=== PATIENT | female | born 1945 | race Caucasian/White ===

== ENCOUNTER 2016-06-20 09:07 | Observation (INO) | payer MEDICARE ==
[~2016-06-20] VITALS: Ht 154.9 cm; Wt 55.4 kg
[~2016-06-20 09:07] MED LIST: ASPIRIN 81M81 MG/TA2 PO; CEPHALEXIN500 M1 PO; CORDARONE200 MG/TAB PO; Cordarone PO; GLUCOTROL XL10 MG PO; GLUCOTROL10 MG PO; KLOR-CON 1010 MEQ PO; LASIX 20MG TABL20 MG PO; LOPRESSOR 225 MG/TAB PO; MIRALAX119G PO; NITROSTAT0.4 MG/TAB SL; NORCO 325 MG-51 TAB PO; PLAVIX 75MG TAB75 MG PO; PRINIVIL10 MG PO; TENORMIN 2525 MG/TAB PO; VASOTEC 2.2.5 MG/TAB PO; ZANTAC 150MG T150 MG PO; ZOCOR 20MG20 MG PO
[2016-06-20 12:01] LABS: BASO % 0.2 % (0.0-2.0); EOS # 0.2 (0.0-0.7); EOS % 1.2 % (0-4.0); GRAN # 9.9 (1.4-6.5); GRAN % 81.2 % (42.2-75.2); HEMOGLOBIN 12.3 g/dl (12.5-16.0); LYMPH # 1.1 (1.2-3.4); LYMPH % 8.9 % (20.0-51.0); MEAN CELL VOLUME 94 fl (80.0-100.0); MEAN CORPUSCULAR HEMOGLOBIN 32 pg (27.0-31.0); MEAN CORPUSCULAR HGB CONC 34 g/dl (33.0-37.0); MEAN PLATELET VOLUME 9.5 fl (7.4-10.4); MONO % 8.3 % (1.7-9.3); PLATELET COUNT 171 K/mm3 (130-400); RED BLOOD COUNT 3.83 M/mm3 (4.10-5.30); REDCELL DISTRIBUTION WIDTH-CV 13.4 % (11.5-14.5); WHITE BLOOD COUNT 12.2 K/mm3 (4.8-10.8)
[2016-06-20 12:11] LABS: HEMATOCRIT 36.1 % (37.0-47.0)
[2016-06-20 12:13] LABS: INR 1.1 (0.8-3.0); PROTHROMBIN TIME 11.7 SECONDS (9.7-12.8)
[2016-06-20 12:16] LABS: PARTIAL THROMBOPLASTIN TIME 35.3 SECONDS (26.0-37.0)
[2016-06-20 12:19] VITALS: BP 109/41; PULSE 77; TEMP 98.1
[2016-06-20 12:21] VITALS: BP 109/41
[2016-06-20 12:30] LABS: ADJUSTED CALCIUM 9.2 mg/dL (8.4-10.2); ALANINE AMINOTRANSFERASE 53 U/L (9-52); ALBUMIN 3.6 gm/dL (3.5-5.0); ALKALINE PHOSPHATASE 98 U/L (50-136); ANION GAP 8 mmol/L (7-16); BILIRUBIN,TOTAL 0.9 mg/dL (0.0-1.0); BLOOD UREA NITROGEN 9 mg/dL (7-17); CALCIUM 8.9 mg/dL (8.4-10.2); CARBON DIOXIDE 28 mmol/L (22-30); CHLORIDE 97 mmol/L (98-107); CHOLESTEROL 152 mg/dL (120-200); CREATININE, serum 0.79 mg/dL (0.52-1.25); GLUCOSE 110 mg/dL (74-106); HDL CHOLESTEROL 34 mg/dL; LDL CHOLESTEROL 99 mg/dL; POTASSIUM 3.8 mmol/L (3.4-5.0); SODIUM 134 mmol/L (137-145); TOTAL PROTEIN 6.6 gm/dL (6.4-8.2); TRIGLYCERIDE 93 mg/dL
[2016-06-20 12:56] LABS: MAGNESIUM 1.7 mg/dL (1.6-2.3)
[2016-06-20 13:09] LABS: TROPONIN-I < 0.012 ng/mL (0.000-0.034)
[2016-06-20 16:51] VITALS: BP 98/43; PULSE 70; TEMP 98.2
[2016-06-20 19:48] VITALS: BP 90/38; PULSE 69; TEMP 98.3
[2016-06-20 23:45] VITALS: BP 94/37; PULSE 71; TEMP 98.7
[2016-06-21 03:48] VITALS: BP 91/39; PULSE 67; TEMP 98.5
[2016-06-21 04:21] LABS: PH 5 (5-8); SQUAMOUS EPITHELIAL 0-2 /hpf; URINE APPEARANCE Clear; URINE BACTERIA None Seen /hpf; URINE BILIRUBIN Negative (NEGATIVE); URINE BLOOD 1+ (NEGATIVE); URINE COLOR Yellow; URINE GLUCOSE Negative (NEGATIVE); URINE KETONE Negative (NEGATIVE); URINE RBC 0-2 /hpf; URINE UROBILINOGEN Negative (NEGATIVE); URINE WBC 0-2 /hpf
[2016-06-21 08:00] LABS: BASO % 0.4 % (0.0-2.0); EOS # 0.3 (0.0-0.7); EOS % 3.1 % (0-4.0); GRAN # 5.1 (1.4-6.5); GRAN % 63.7 % (42.2-75.2); LYMPH # 1.9 (1.2-3.4); LYMPH % 23.9 % (20.0-51.0); MEAN CELL VOLUME 95 fl (80.0-100.0); MEAN CORPUSCULAR HGB CONC 34 g/dl (33.0-37.0); MEAN PLATELET VOLUME 10.3 fl (7.4-10.4); MONO # 0.7 (0.1-0.6); MONO % 8.4 % (1.7-9.3); PLATELET COUNT 153 K/mm3 (130-400); RED BLOOD COUNT 3.45 M/mm3 (4.10-5.30); REDCELL DISTRIBUTION WIDTH-CV 13.5 % (11.5-14.5)
[2016-06-21 08:01] LABS: HEMATOCRIT 32.7 % (37.0-47.0); HEMOGLOBIN 11.2 g/dl (12.5-16.0); MEAN CORPUSCULAR HEMOGLOBIN 32 pg (27.0-31.0)
[2016-06-21 08:23] VITALS: BP 115/48; PULSE 73; TEMP 98.8
[2016-06-21 09:17] LABS: ANION GAP 8 mmol/L (7-16); BLOOD UREA NITROGEN 10 mg/dL (7-17); CARBON DIOXIDE 27 mmol/L (22-30); CHLORIDE 100 mmol/L (98-107); CREATININE, serum 0.85 mg/dL (0.52-1.25); GLUCOSE 83 mg/dL (74-106); POTASSIUM 3.5 mmol/L (3.4-5.0); SODIUM 134 mmol/L (137-145)
[2016-06-21 09:29] LABS: TROPONIN-I < 0.012 ng/mL (0.000-0.034)
[2016-06-21] MEDS ORDERED: RESTORIL 1515 MG/CAP PO (09:39)
[2016-06-21 11:15] VITALS: BP 95/41; PULSE 70; TEMP 98.2
== END 2016-06-21 14:17 | disposition home or self-care (01) ==
LOC: MEDICAL 09:07
PROVIDERS: Internal Medicine; Physician Assistant
DX: M94.0 Chondrocostal junction syndrome [Tietze] (principal); I25.5 Ischemic cardiomyopathy; E11.9 Type 2 diabetes mellitus without complications; E78.5 Hyperlipidemia, unspecified; Z95.810 Presence of automatic (implantable) cardiac defibrillator; F17.210 Nicotine dependence, cigarettes, uncomplicated; I50.20 Unspecified systolic (congestive) heart failure; I25.10 Atherosclerotic heart disease of native coronary artery without angina pectoris; I48.91 Unspecified atrial fibrillation; Z95.5 Presence of coronary angioplasty implant and graft
CPT/HCPCS: G0378; G0379; J1644; J2270; J7030

== ENCOUNTER 2017-12-26 06:57 | Day surgery (SDC) | payer MEDICARE ==
[2017-12-26] VITALS (720 sets, daily range): BP systolic 112–140; BP diastolic 54–76; PULSE 62–83; TEMP 97.4–98; O2SAT 85–100
[~2017-12-26] VITALS: Ht 155 cm; Wt 52.9 kg
[~2017-12-26 06:57] MED LIST changes: +RESTORIL 1515 MG/CAP PO
[2017-12-26 07:31] LABS: HEMATOCRIT 38.3 % (37.0-47.0); HEMOGLOBIN 13.4 g/dl (12.5-16.0); MEAN CELL VOLUME 94 fl (80.0-100.0); MEAN CORPUSCULAR HEMOGLOBIN 33 pg (27.0-31.0); MEAN CORPUSCULAR HGB CONC 35 g/dl (33.0-37.0); MEAN PLATELET VOLUME 9.6 fl (7.4-10.4); PLATELET COUNT 203 K/mm3 (130-400); RED BLOOD COUNT 4.09 M/mm3 (4.10-5.30); REDCELL DISTRIBUTION WIDTH-CV 13.1 % (11.5-14.5)
[2017-12-26] MEDS ORDERED: LASIX 20MG TABL20 MG PO (07:37)
[2017-12-26 07:38] LABS: CALCIUM 9.2 mg/dL (8.4-10.2); CREATININE, serum 1.04 mg/dL (0.52-1.25); POTASSIUM 3.7 mmol/L (3.4-5.0)
[2017-12-26] MEDS ORDERED: K-TAB10 PO (07:39)
[2017-12-26] MEDS ORDERED: NITROSTAT0.4 MG/TAB SL (07:39)
[2017-12-26 07:44] LABS: PROTHROMBIN TIME 11.5 SECONDS (9.7-12.8)
[2017-12-27] VITALS (311 sets, daily range): BP systolic 107–126; BP diastolic 57–62; PULSE 60–64; TEMP 97–97.8; O2SAT 92–100
[2017-12-27 06:19] LABS: BASO % 0.5 % (0.0-2.0); EOS # 0.4 (0.0-0.7); EOS % 4.7 % (0-4.0); HEMATOCRIT 37.5 % (37.0-47.0); HEMOGLOBIN 12.7 g/dl (12.5-16.0); LYMPH # 2.3 (1.2-3.4); LYMPH % 27.4 % (20.0-51.0); MEAN CELL VOLUME 94 fl (80.0-100.0); MEAN CORPUSCULAR HEMOGLOBIN 32 pg (27.0-31.0); MEAN CORPUSCULAR HGB CONC 34 g/dl (33.0-37.0); MEAN PLATELET VOLUME 9.9 fl (7.4-10.4); MONO # 0.6 (0.1-0.6); MONO % 7.2 % (1.7-9.3); PLATELET COUNT 181 K/mm3 (130-400); RED BLOOD COUNT 4.01 M/mm3 (4.10-5.30); REDCELL DISTRIBUTION WIDTH-CV 12.8 % (11.5-14.5)
[2017-12-27 06:33] LABS: CALCIUM 8.7 mg/dL (8.4-10.2); CREATININE, serum 1.06 mg/dL (0.52-1.25); POTASSIUM 3.5 mmol/L (3.4-5.0)
[2017-12-27] MEDS ORDERED: BRILINTA90 MG PO (09:29)
== END 2017-12-27 13:00 | disposition home or self-care (01) ==
LOC: COL.CAR 06:57 → ICU 10:18 → COL.CAR 12-27 13:00
PROVIDERS: Internal Medicine Cardiovascular Disease; Nurse Practitioner
DX: I25.5 Ischemic cardiomyopathy (principal); I25.10 Atherosclerotic heart disease of native coronary artery without angina pectoris; I10 Essential (primary) hypertension; I34.0 Nonrheumatic mitral (valve) insufficiency; E78.5 Hyperlipidemia, unspecified; E11.9 Type 2 diabetes mellitus without complications; Z86.73 Personal history of transient ischemic attack (TIA), and cerebral infarction without residual deficits; F17.210 Nicotine dependence, cigarettes, uncomplicated; Z95.810 Presence of automatic (implantable) cardiac defibrillator
CPT/HCPCS: OP; C1760; C1769; C1874; C1887; C1894; C9600; J0583; J2250; J3010; Q9967